=== PATIENT | male | born 1995 | race Asian ===

== ENCOUNTER 2025-01-19 08:29 | Outpatient (CLI) | payer BC ==
[2025-01-19] MEDS ORDERED: Iopamidol 300 61% 100 ML VIAL FS ONE (12:47)
== END 2025-01-19 08:30 | disposition home or self-care (01) ==
LOC: CSHCT 08:29
PROVIDERS: ATTEND Specialist
DX: R59.9 Enlarged lymph nodes, unspecified (principal)
CPT/HCPCS: 70492; Q9967